=== PATIENT | male | born 1980 | race Two or more races ===

== ENCOUNTER 2020-09-05 17:36 | Emergency (ER) | payer OTHER ==
[~2020-09-05] VITALS: Ht 175.3 cm; Wt 97.5 kg
--- NOTE | 2020-09-05 17:36 | NUR ---
PT BIB SELF C/O FEVER, CHILLS AND SORE THROAT FOR 6 DAYS. PT IS AAOX4, NOT IN RESPIRATORY DISTRESS, V/S STABLE, KEPT RESTED AND COMFORTABLE. WILL CONTINUE TO MONITOR.
--- NOTE | 2020-09-05 18:04 | NUR ---
covid swab done and sent to lab
[2020-09-05] MEDS ORDERED: ACETAMINOPHEN ES 500 MG TABLET ONE (18:11)
[2020-09-05] MEDS ORDERED: ACETAMINOPHEN 325 MG TABLET PO ONE (18:30)
[2020-09-05] MEDS ORDERED: ACET-2605 PO (19:43)
--- NOTE | 2020-09-05 20:18 | NUR ---
Patient discharged to home in stable condition. Written and verbal after care instructions given. Patient verbalizes understanding of instruction. Pt ambulatory with a steady gait
[2020-09-05 20:54] VITALS: BP 135/79
--- NOTE | 2020-09-06 18:25 | NUR ---
Received call from lab ([facility]) reporting that the patient is covid positive. Called the patient and made him aware of being covid positive. Informed him to isolate self, follow up with primary care provider and go to the nearest emergency room if the symptoms get worst. The patient verbalized understanding.
== END 2020-09-05 20:20 | disposition home or self-care (01) ==
LOC: ER 17:46
DX: U07.1 COVID-19 (principal)
CPT/HCPCS: 71045; 99284; C9803; U0003